=== PATIENT | female | born 1940 | race Caucasian/White ===

== ENCOUNTER → 2017-04-06 | Outpatient (CLI) | payer MEDICARE ==
[~2017-04-06] MED LIST: ALEV220T14 PO; ASPI81CH6 CHEW; CPMMACHINE; FURO20TA PO; HYDR-3288 PO; NAPR220C22; PANT40TA3 PO; SIMV20TA PO; WALKER WHEELS/F1 MIS
== END ==
LOC: CPRE 11:38
PROVIDERS: ATTEND Orthopaedic Surgery Sports Medicine
DX: M17.12 Unilateral primary osteoarthritis, left knee (principal)

== ENCOUNTER 2017-04-20 11:12 | Inpatient (IN) | payer MEDICARE ==
[~2017-04-20] VITALS: Ht 158.8 cm; Wt 91.9 kg
[~2017-04-20 11:12] MED LIST changes: -ASPI81CH6 CHEW; -CPMMACHINE; -HYDR-3288 PO; -NAPR220C22; -WALKER WHEELS/F1 MIS
[2017-04-20] MEDS ORDERED: ePHEDrine/NS 25 MG/5 ML SYRINGE IV ONE (12:00)
[2017-04-20] MEDS ORDERED: ONDANSETRON HCL 4 MG/2 ML VIAL IV ONE (12:00)
[2017-04-20] MEDS ORDERED: NEOSTIGMINE 5 MG/5 ML SYRINGE IV PUSH ONE (12:00)
[2017-04-20] MEDS ORDERED: METOPROLOL TARTRATE 5 MG/5 ML VIAL IV ONE (12:00)
[2017-04-20] MEDS ORDERED: ROCURONIUM INJ 50 MG/5 ML SYRINGE IV PUSH ONE (12:00)
[2017-04-20] MEDS ORDERED: ESMOLOL HCL 100 MG/10 ML VIAL IV ONE (12:00)
[2017-04-20] MEDS ORDERED: PHENYLEPH/NS 1000 MCG/10 ML SYR IV ONE (12:00)
[2017-04-20] MEDS ORDERED: PROPOFOL 200 MG/20 ML AMP IV ONE (12:00)
[2017-04-20] MEDS ORDERED: GLYCOPYRROLATE 1 MG/5 ML SYRINGE IV PUSH ONE (12:00)
[2017-04-20] MEDS ORDERED: LIDOCAINE HCL 1% PF 5 ML SYRINGE OTHER ONE (12:00)
[2017-04-20] MEDS ORDERED: DEXAMETHASONE SOD PHOS 20 MG/5 ML VIAL ONE (12:38)
[2017-04-20] MEDS ORDERED: ceFAZolin 2 GM PREMIX 50 ML ONE (12:38)
[2017-04-20] MEDS ORDERED: HYDR-3288 PO (12:42)
[2017-04-20] MEDS ORDERED: ASPI81CH6 CHEW (12:43)
[2017-04-20] MEDS ORDERED: LACTATED RINGER'S 1000 ML IV PRN (13:00)
[2017-04-20] MEDS ORDERED: SODIUM CHLORID 0.9% 500 ML IV PRN (13:00)
[2017-04-20] MEDS ORDERED: ceFAZolin 2 GM PREMIX 50 ML IV SCH (13:00)
[2017-04-20] MEDS ORDERED: CHLORHEXIDINE GLUCONATE 4% SOLN 120 ML BTL TOPICAL SCH (13:00)
[2017-04-20] MEDS ORDERED: VANCOMYCIN 1000 MG/NS 250 ML (for <70 kg) IV SCH ×2 (13:00)
[2017-04-20] MEDS ORDERED: POVIDONE IODINE 7.5% SCRUB 118 ML BOTTLE TOPICAL SCH (13:00)
[2017-04-20] MEDS ORDERED: CHLORHEXIDINE GLUCONATE 2 % 1 PACK (2 CLOTHS) TOPICAL PRN (13:00)
[2017-04-20] MEDS ORDERED: POVIDONE IODINE 5% (ANTISEPSIS KIT) 4 APPLICATIONS EACH NARE PRN (13:00)
[2017-04-20] MEDS ORDERED: METOPROLOL TARTRATE 25 MG TAB PO PRN (13:00)
[2017-04-20 13:01] VITALS: PULSE 74
[2017-04-20] MEDS ORDERED: BISACODYL 10 MG SUPP RECTAL PRN (13:15)
[2017-04-20] MEDS ORDERED: MORPHINE SULFATE 4 MG/ML INJ IV PUSH PRN (13:15)
[2017-04-20] MEDS ORDERED: ONDANSETRON HCL 4 MG/2 ML VIAL IVP PRN (13:15)
[2017-04-20] MEDS ORDERED: DEXAMETHASONE SOD PHOS 20 MG/5 ML VIAL IV SCH (13:15)
[2017-04-20] MEDS ORDERED: diphenhydrAMINE HCL 50 MG/ML VIAL IV PUSH PRN (13:15)
[2017-04-20] MEDS ORDERED: MIDAZOLAM HCL 5 MG/5 ML VIAL ONE (13:25)
[2017-04-20] MEDS ORDERED: SODIUM CHLORIDE 0.9% 20 ML VIAL ONE (13:26)
[2017-04-20] MEDS ORDERED: BUPIVACAINE LIPOSOME PF 1.3% 20 ML VIAL ONE (13:26)
[2017-04-20] MEDS ORDERED: ACETAMINOPHEN 1000 MG/100 ML 100 ML IV ONE (13:34)
[2017-04-20] MEDS ORDERED: ROPIVACAINE PERI-ARTICULAR INJECTION. P-ARTICULR SCH ×5 (14:00)
[2017-04-20] MEDS ORDERED: TRANEXAMIC PERI-ARTICULAR 3,000 MG/NS 100 ML P-ARTICULR SCH ×2 (14:00)
[2017-04-20] MEDS ORDERED: TRANEXAMIC ACID INJ 1,080 MG in SODIUM CHLORIDE 0.9% INJ 100 ML IV SCH (14:00)
[2017-04-20] MEDS ORDERED: Post-op Orders (for Pharmacy) XX ONE (14:00)
[2017-04-20] MEDS ORDERED: GENTAMICIN SULFATE 80 MG/2 ML VIAL ONE (14:51)
[2017-04-20] MEDS ORDERED: DO NOT ADM ANY ANTICOAGULANT DRUGS PRN (15:59)
[2017-04-20] MEDS: SODIUM CHLOR 0.9% 1000 ML INJ 1,000 ML IV SCH ×2 (16:16→23:15)
[2017-04-20] MEDS ORDERED: MORPHINE SULFATE 4 MG/ML INJ ONE (16:17)
--- NOTE | 2017-04-20 16:23 | RADRPT ---
EXAM DATE/TIME: 04/20/2017 16:05 [facility] COMPARISON: No previous studies available for comparison. INDICATIONS : Post op left total knee. MEDICAL HISTORY : None. SURGICAL HISTORY : Total left knee ENCOUNTER: Initial ACUITY: 1 day PAIN SCORE: 0/10 LOCATION: Left knee FINDINGS: Left total knee arthroplasty is noted. The tibial and femoral components appear well seated. There is subcutaneous air as well as air within the suprapatellar region. CONCLUSION: Satisfactory, expected postoperative appearance left knee arthroplasty. Aditya Ferraro MD on April 20, 2017 at 16:22 Board Certified Radiologist. This report was verified electronically.
--- NOTE | 2017-04-20 16:26 | PD.ORT.PN ---
Objective Vitals Vital Signs Date Time Temp Pulse Resp B/P (MAP) Pulse Ox O2 Delivery O2 Flow Rate FiO2 04/20/17 16:15 75 22 143/67 (92) 97 Nasal Cannula 2 04/20/17 16:00 79 20 144/67 (92) 95 Nasal Cannula 2 04/20/17 15:59 97.3 82 21 154/71 (98) 96 Nasal Cannula 2 04/20/17 13:01 74 04/20/17 12:06 97.8 73 16 142/77 (98) 99 Assessment & Plan Ortho Post Op Day #: 0 Problem List: Assessment and Plan s/p L TKA POD#0 wbat ok to maintain dressing unless saturated lovenox, d/c on asa81 d/c planning home vs snf rx in chart f/up dr. johnston 2 weeks Vinay Samuels Apr 20, 2017 16:26
--- NOTE | 2017-04-20 16:28 | HHI.DCPOC ---
Discharge Care Plan Diagnosis: (1) Primary localized osteoarthrosis, lower leg Your Health Problems Are: Difficulty with ADL Goals to Promote Your Health * To prevent worsening of your condition and complications * To maintain your health at the optimal level Directions to Meet Your Goals Take your medications as prescribed Follow your dietary instruction Follow activity as directed Keep your appointments as scheduled Take your immunizations and boosters as scheduled If your symptoms worsen call your PCP, if no PCP go to Urgent Care Center or Emergency Room Smoking is Dangerous to Your Health. Avoid second hand smoke Call the 24-hour hour crisis hotline for domestic abuse at Vinay Samuels Apr 20, 2017 16:28
--- NOTE | 2017-04-20 16:28 | HHI.FF ---
Face to Face Verification Diagnosis: (1) Primary localized osteoarthrosis, lower leg Physical Therapy Gait training, Safety evaluation, Transfer training, bed to chair Knee: Total knee, Protocol: Left, Full weight bearing Left LE Weight Bearing: WB as tolerated Nursing RN: 3 days/week x 2 weeks Nursing: Dressing changes Dressing Changes: Daily dressing change I have seen patient Andrey Herzog on 04/20/17. My clinical findings support the need for the requested home health care services because: Limited ability to care for self High risk of falls I certify that my clinical findings support that this patient is homebound because: Post-op weakness Unsteady gait/balance Vinay Samuels Apr 20, 2017 16:28
[2017-04-20] MEDS ORDERED: CPMMACHINE (16:29)
[2017-04-20] MEDS ORDERED: WALKER WHEELS/F1 MIS (16:29)
--- NOTE | 2017-04-20 20:10 | MP ---
cc: Vinay Gusman MD DATE OF OPERATION: PREOPERATIVE DIAGNOSIS: Left knee osteoarthritis. POSTOPERATIVE DIAGNOSIS: Left knee osteoarthritis. PROCEDURE: Left total knee arthroplasty. SURGEON: Vinay Gusman MD BASEBALL WINDER: GLORIA Bowser ANESTHESIA: General with a femoral nerve adductor canal block. ESTIMATED BLOOD LOSS: 200 mL. TOURNIQUET TIME: 23 minutes at 250 mmHg. COMPLICATIONS: None. IMPLANTS USED: DePuy Attune size 6 posterior stabilized femoral component, size 5 rotating platform tibial baseplate, size 5 mm polyethylene tibial insert, size 35 patella. JUSTIFICATIONS: Patient is a 77-year-old female with history of severe osteoarthritis involving the left knee. She has severe disabling pain with standing, walking, ambulation, weightbearing activities and even severe pain at rest. She has failed greater than 3 months of nonoperative conservative treatment to include medication therapy, injections, ambulatory assistive aids, home exercise program, activity modification and weight loss attempts. X-rays of the left knee reveal severe end-stage osteoarthritis with [id number] joint space narrowing, subchondral sclerosis, subchondral/osteophyte formation with subluxation and deformity. The patient was counseled on risks, benefits and alternatives to total knee arthroplasty. The risks were discussed, which include but are not limited to anesthesia, bleeding, infection, damage to nerves and blood vessels, pain, stiffness, failure of components, blood clots, pulmonary embolism and even . Patient's pain is severe. She favors the benefits over the risks. She did wish to proceed with surgery. PROCEDURE IN DETAIL: Written consent was obtained. Patient was identified by name, taken to operating room, placed supine on the operating table. General anesthesia was administered as well as 2 g of IV Ancef and 1 g of IV vancomycin. A well-padded tourniquet was placed on the left thigh. The left lower extremity prepped and draped using isopropyl alcohol, Hibiclens solution and ChloraPrep solution. After a timeout was performed, an Esmarch bandage was used to exsanguinate the left lower extremity. The tourniquet was inflated to 250 mmHg. A longitudinal incision was made over the anterior aspect of the left knee, a medial parapatellar arthrotomy was performed and the patella was everted. Patella resection guide was used to resect 9 mm of patella. A size 35 mm guide was placed. Three drill holes were placed and the 35 mm patella trial fit well. Attention was turned to the femur, where an intramedullary guidewire was placed and the distal femoral guide was set to remove 10 mm of distal femur, 5 degrees off the anatomic valgus axis alignment. An oscillating saw was used to perform the distal femoral cut. Attention was turned to the tibia, where an extramedullary tibial guide was set to remove 5 mm of the lowest portion of the medial tibial plateau. Tibial guide was pinned in place and tibia cut was performed. A 5 mm spacer block showed full extension. Attention was turned back to the femur. The AP sizing block measured a size 6. The anterior reference 3 degree external rotation guide was used to pin a size [address] The anterior and posterior chamfer cuts were performed. A size 6 PCL box guide was pinned in place and the PCL was box cut with an oscillating saw. The medial and lateral meniscus remnants were removed, as well as bone and soft tissues debris from the posterior portion of the knee. A size 5 tibial baseplate was pinned in place and tibia was drilled and punched. Trial components were evaluated and final components cemented into place. With the current components, the leg could achieve full extension to zero degrees and flexion to 140. No evidence of tibial liftoff. Varus-valgus balance appeared appropriate and symmetric, and the patella was noted to track centrally. With the tourniquet deflated, Bovie cautery was used for hemostasis. The knee was again thoroughly irrigated with sterile saline pulse lavage antibiotic impregnated solution. The arthrotomy incision was closed with #1 Vicryl suture, subcutaneous layer with 2-0 Vicryl suture, and the skin was closed with Dermabond. Sterile dressings were applied. The patient tolerated the procedure well with no intraoperative complications noted. Alfonso Samuels, physician assistant grocery store manager, certified was present for entire procedure to include patient positioning and the procedure itself. The medical necessity of a physician assistant grocery store manager was indicated in this case due to complexity of the procedure. He assisted with appropriate manipulation of the leg and also retraction of muscle, tendon, bone and neurovascular structures. He assisted with preparation of bone and also implantation of the prosthetic replacement. MD KIRAN Woodall/RANDY , 03:38 PM , 08:08 PM
[2017-04-20 20:20] VITALS: BP 116/58; PULSE 76; RESP 18; TEMP 96.4; O2SAT 96
[2017-04-20] MEDS ORDERED: ZOLPIDEM TARTRATE 5 MG TAB PO PRN (21:00)
[2017-04-21] VITALS (7 sets, daily range): BP systolic 105–129; BP diastolic 50–64; PULSE 74–87; RESP 15–18; TEMP 96.8–98.9; O2SAT 93–95
[2017-04-21] MEDS: ENOXAPARIN SODIUM 30 MG/0.3 ML SYRINGE SQ SCH (04:00)
[2017-04-21] MEDS: ACETAMINOPHEN/HYDROcodone 325 MG/7.5 MG TAB PO PRN ×4 (06:16→20:52)
[2017-04-21 07:01] LABS: HEMATOCRIT 33.5 % (35.0-46.0); HEMOGLOBIN 11.3 GM/DL (11.6-15.3); MEAN CELL VOLUME 82.7 FL (80.0-100.0); MEAN CORPUSCULAR HEMOGLOBIN 27.9 PG (27.0-34.0); MEAN CORPUSCULAR HGB CONC 33.7 % (32.0-36.0); MEAN PLATELET VOLUME 8.1 FL (7.0-11.0); PLATELET COUNT 307 TH/MM3 (150-450); RED BLOOD COUNT 4.05 MIL/MM3 (4.00-5.30); WHITE BLOOD COUNT 11.3 TH/MM3 (4.0-11.0)
[2017-04-21 07:27] LABS: BICARBONATE 23.4 MEQ/L (21.0-32.0); CALCIUM 8.4 MG/DL (8.5-10.1); CREATININE 0.97 MG/DL (0.50-1.00)
--- NOTE | 2017-04-21 08:41 | PD.CONS ---
HPI Service [facility] Hospitalists Consult Requested By Dr. Gusman Reason for Consult Post-operative medical management Primary Care Physician Prakash Olivas MD, PhD Diagnoses: History of Present Illness This is a 77 year old female with a past medical history which includes cervical radiculopathy, esophageal reflux, hyperlipidemia, thrombocytopenia, subclinical hypothyroidism and osteoarthritis localized to the knee. Patient is S/P Left total knee arthroplasty 04/20/[address] Gusman. We have been consulted for assistance with post operative medical management. Patient resting in bed A&O in no acute distress. Patient reports feeling well and in no acute distress. Denies chest pain, SOB, fevers, chills, N/V/D/C. Review of Systems Constitutional: DENIES: Fatigue, Fever, Chills Respiratory: DENIES: Cough, Sputum production, Shortness of breath Cardiovascular: DENIES: Chest pain, Palpitations, Dyspnea on Exertion Musculoskeletal: COMPLAINS OF: Stiffness, Joint Swelling Neurologic: DENIES: Headache, Speech Problems Psychiatric: DENIES: Anxiety, Confusion, Depression Past Family Social History Past Medical History cervical radiculopathy, esophageal reflux, hyperlipidemia, thrombocytopenia, subclinical hypothyroidism, osteoarthritis localized to the knee Past Surgical History Arthroscopy right knee, back surgery, cataract surgery, EGD with biopsy, hand surgery for carpal tunnel release Reported Medications Aspirin Low Dose (Aspirin) 81 Mg Chew 81 Mg CHEW BID 30 Days [place] (Hydrocodone-Acetaminophen) 7.5-325 mg Tab 1-2 Tab PO Q6H PRN Aleve Arthritis (Naproxen Sodium) 220 Mg Tab 220 Mg PO BID Simvastatin 20 Mg Tab 20 Mg PO DAILY Pantoprazole (Pantoprazole Sodium) 40 Mg Tab 40 Mg PO DAILY Furosemide 20 Mg Tab 20 Mg PO DAILY Allergies: Coded Allergies: prednisone (Verified Allergy, Unknown, 04/06/17) Family History Reviewed and noncontributory Social History Denies ETOH use, denies tobacco use and denies illicit drug use Physical Exam Vital Signs Vital Signs Date Time Temp Pulse Resp B/P (MAP) Pulse Ox O2 Delivery O2 Flow Rate FiO2 04/21/17 04:20 97.8 87 17 117/64 (81) 95 04/21/17 00:10 96.8 74 17 108/59 (75) 94 04/20/17 20:20 96.4 76 18 116/58 (77) 96 04/20/17 17:40 97.3 71 16 133/82 (99) 95 Nasal Cannula 2 04/20/17 17:15 67 15 129/55 (79) 95 Nasal Cannula 2 04/20/17 17:00 66 13 136/62 (86) 96 Nasal Cannula 2 04/20/17 16:45 68 18 138/62 (87) 95 Nasal Cannula 2 04/20/17 16:30 72 15 139/60 (86) 94 Nasal Cannula 2 04/20/17 16:15 75 22 143/67 (92) 97 Nasal Cannula 2 04/20/17 16:00 79 20 144/67 (92) 95 Nasal Cannula 2 04/20/17 15:59 97.3 82 21 154/71 (98) 96 Nasal Cannula 2 04/20/17 13:01 74 04/20/17 12:06 97.8 73 16 142/77 (98) 99 Physical Exam GENERAL: This is a well-nourished, well-developed patient, in no apparent distress. SKIN: Post-op dressing dry and intact HEAD: Atraumatic. Normocephalic. No temporal or scalp tenderness. EYES: Extraocular motions intact. No scleral icterus. No injection or drainage. CARDIOVASCULAR: Regular rate and rhythm RESPIRATORY: Clear to auscultation. Breath sounds equal bilaterally. GASTROINTESTINAL: Abdomen soft, non-tender, nondistended. MUSCULOSKELETAL: Extremities without clubbing, cyanosis, or edema. No joint tenderness, effusion, or edema noted. No calf tenderness. Negative Homans sign bilaterally. NEUROLOGICAL: Awake and alert. No focal deficits. Motor and sensory grossly within normal limits. Five out of 5 muscle strength in all muscle groups, with the exception of post-operative LLE. Normal speech. Laboratory Laboratory Tests Test 04/21/17 04:42 White Blood Count 11.3 Red Blood Count 4.05 Hemoglobin 11.3 Hematocrit 33.5 Mean Corpuscular Volume 82.7 Mean Corpuscular Hemoglobin 27.9 Mean Corpuscular Hemoglobin Concent 33.7 Red Cell Distribution Width 14.0 Platelet Count 307 Mean Platelet Volume 8.1 Blood Urea Nitrogen 18 Creatinine 0.97 Random Glucose 76 Calcium Level 8.4 Sodium Level 139 Potassium Level 3.6 Chloride Level 106 Carbon Dioxide Level 23.4 Anion Gap 10 Estimat Glomerular Filtration Rate 56 Result Diagram: 3/3/18 0442 3/3/18 0442 Imaging Last Impressions Knee X-Ray 04/20/17 1240 Signed Impressions: Service Date/Time: Thursday, April 20, 2017 16:05 - CONCLUSION: Satisfactory, expected postoperative appearance left knee arthroplasty. Aditya Ferraro MD Assessment and Plan Problem List: (1) Osteoarthritis ICD Codes: M19.90 - Unspecified osteoarthritis, unspecified site Plan: S/P Left total knee arthroplasty 04/20/[address] Gusman. We have been consulted for assistance with post operative medical management. We have been consulted for assistance with post-op medical management Patient reports feeling well pain controlled with PO pain medication (2) Hyperlipidemia ICD Codes: E78.5 - Hyperlipidemia, unspecified Plan: continue home simvastatin (3) GERD (gastroesophageal reflux disease) ICD Codes: K21.9 - Gastro-esophageal reflux disease without esophagitis Plan: continue home pantoprazole Assessment and Plan Patient examined. Assessment and plan formulated with Ana Lilia Eagle PA-C. I agree with the above. Ana Lilia Eagle Apr 21, 2017 08:40 Austin Estrada DO Apr 23, 2017 12:37
[2017-04-21] MEDS: FUROSEMIDE 20 MG TAB PO SCH (08:44)
[2017-04-21] MEDS: PRAVASTATIN SOD 40 MG TAB PO SCH (08:44)
[2017-04-21] MEDS: PANTOPRAZOLE SOD 40 MG DELAYED RELEASE TAB PO SCH (08:44)
[2017-04-21] MEDS: SODIUM CHLOR 0.9% 1000 ML INJ 1,000 ML IV SCH ×2 (09:15→19:15)
[2017-04-21] MEDS ORDERED: PNEUMOCOCCAL POLYVALENT INJ 25 MCG/0.5 ML SYR IM ONE (10:00)
--- NOTE | 2017-04-21 18:07 | PD.ORT.PN ---
Subjective Subjective Remarks no CP/SOB. no issues. pain controlled. Objective Vitals Vital Signs Date Time Temp Pulse Resp B/P (MAP) Pulse Ox O2 Delivery O2 Flow Rate FiO2 04/21/17 16:00 98.4 80 18 129/56 (80) 94 04/21/17 12:00 96.8 79 18 105/50 (68) 93 04/21/17 09:59 94 04/21/17 08:00 98.9 79 18 119/56 (77) 94 04/21/17 04:20 97.8 87 17 117/64 (81) 95 04/21/17 00:10 96.8 74 17 108/59 (75) 94 04/20/17 20:20 96.4 76 18 116/58 (77) 96 I/O 04/20/17 04/20/17 04/20/17 04/21/17 04/21/17 04/21/17 07:00 15:00 23:00 07:00 15:00 23:00 Intake Total 133 ml 480 ml 600 ml Output Total 250 ml 750 ml Balance 133 ml 230 ml -150 ml Intake Oral 480 ml 600 ml IV Total 133 ml Output Urine Total 250 ml 750 ml # Bowel Movements 0 0 Result Diagram: 04/21/17 0442 04/21/17 0442 Objective Remarks aaox3 LLE: nvi, neg homans, SILT distally, dressing CDI Assessment & Plan Assessment and Plan s/p L TKA POD#1 doing well. no issues. pain controlled wbat ok to maintain dressing unless saturated lovenox, d/c on asa81 d/c planning home HHC tomorrow rx in chart f/up dr. johnston 2 weeks Michael Josue Jr., MD Apr 21, 2017 18:07
[2017-04-21] MEDS: DOCUSATE SODIUM 100 MG CAP PO SCH (20:51)
[2017-04-21] MEDS: MULTIVITAMINS/MINERALS THERAPEUTIC TAB PO SCH (20:51)
[2017-04-22] VITALS: BP 117/57; PULSE 87; RESP 15; TEMP 98.7; O2SAT 94
[2017-04-22] MEDS: ACETAMINOPHEN/HYDROcodone 325 MG/7.5 MG TAB PO PRN ×4 (01:12→16:03)
[2017-04-22 04:00] VITALS: BP 125/57; PULSE 83; RESP 16; TEMP 98; O2SAT 97
[2017-04-22] MEDS: ENOXAPARIN SODIUM 30 MG/0.3 ML SYRINGE SQ SCH (04:44)
[2017-04-22] MEDS: SODIUM CHLOR 0.9% 1000 ML INJ 1,000 ML IV SCH (05:15)
[2017-04-22 08:00] VITALS: BP 116/60; PULSE 81; RESP 18; TEMP 97.4; O2SAT 92
[2017-04-22] MEDS: FUROSEMIDE 20 MG TAB PO SCH (09:00)
[2017-04-22] MEDS: MULTIVITAMINS/MINERALS THERAPEUTIC TAB PO SCH (09:05)
[2017-04-22] MEDS: DOCUSATE SODIUM 100 MG CAP PO SCH (09:05)
[2017-04-22] MEDS: PANTOPRAZOLE SOD 40 MG DELAYED RELEASE TAB PO SCH (09:05)
[2017-04-22] MEDS: PRAVASTATIN SOD 40 MG TAB PO SCH (09:05)
[2017-04-22 09:18] LABS: HEMATOCRIT 34.6 % (35.0-46.0); HEMOGLOBIN 11.7 GM/DL (11.6-15.3); MEAN CELL VOLUME 82.7 FL (80.0-100.0); MEAN CORPUSCULAR HEMOGLOBIN 28.1 PG (27.0-34.0); MEAN PLATELET VOLUME 7.3 FL (7.0-11.0); PLATELET COUNT 309 TH/MM3 (150-450); RED BLOOD COUNT 4.18 MIL/MM3 (4.00-5.30); RED CELL DISTRIBUTION WIDTH 14.6 % (11.6-17.2); WHITE BLOOD COUNT 12.6 TH/MM3 (4.0-11.0)
[2017-04-22 10:05] LABS: BICARBONATE 23.1 MEQ/L (21.0-32.0); CALCIUM 8.4 MG/DL (8.5-10.1); CREATININE 0.91 MG/DL (0.50-1.00)
--- NOTE | 2017-04-22 11:28 | RADRPT ---
EXAM DATE/TIME: 04/22/2017 11:07 [facility] COMPARISON: No previous studies available for comparison. INDICATIONS : Lightheaded and vomitting. MEDICAL HISTORY : None. SURGICAL HISTORY : None. ENCOUNTER: Initial ACUITY: 1 day PAIN SCORE: 0/10 LOCATION: Bilateral chest FINDINGS: Minimal linear parenchymal changes left base. Right lung is clear. The heart and pulmonary vascularity are normal. The portion of the bony skeleton visualized is unremarkable. CONCLUSION: Minimal linear parenchymal changes left base, probably atelectasis Anthony Kim MD FACR on April 22, 2017 at 11:26 Board Certified Radiologist. This report was verified electronically.
[2017-04-22 12:00] VITALS: BP 115/57; PULSE 78; RESP 18; TEMP 96.4; O2SAT 98
--- NOTE | 2017-04-22 13:09 | PD.ORT.PN ---
Subjective Subjective Remarks no CP/SOB. no issues. pain controlled. Objective Vitals Vital Signs Date Time Temp Pulse Resp B/P (MAP) Pulse Ox O2 Delivery O2 Flow Rate FiO2 04/22/17 12:00 96.4 78 18 115/57 (76) 98 04/22/17 08:00 97.4 81 18 116/60 (78) 92 04/22/17 04:00 98.0 83 16 125/57 (79) 97 04/22/17 00:00 98.7 87 15 117/57 (77) 94 04/21/17 20:00 98.6 81 15 109/54 (72) 95 04/21/17 16:00 98.4 80 18 129/56 (80) 94 I/O 04/21/17 04/21/17 04/21/17 04/22/17 04/22/17 04/22/17 07:00 15:00 23:00 07:00 15:00 23:00 Intake Total 480 ml 600 ml 600 ml 0 ml Output Total 250 ml 750 ml Balance 230 ml -150 ml 600 ml 0 ml Intake Oral 480 ml 600 ml 600 ml 0 ml Output Urine Total 250 ml 750 ml # Voids 0 0 # Bowel Movements 0 0 Result Diagram: 04/22/17 0904 04/22/17 0904 Imaging Last 24 hours Impressions Chest X-Ray 04/22/17 0000 Signed Impressions: Service Date/Time: Saturday, April 22, 2017 11:07 - CONCLUSION: Minimal linear parenchymal changes left base, probably atelectasis Anthony Kim MD FACR Objective Remarks aaox3 LLE: nvi, neg homans, SILT distally, dressing CDI Assessment & Plan Assessment and Plan s/p L TKA POD#2 doing well. no issues. pain controlled wbat ok to maintain dressing unless saturated lovenox, d/c on asa81 d/c planning home HHC today rx in chart f/up dr. johnston 2 weeks Michael Josue Jr., MD Apr 22, 2017 13:09
--- NOTE | 2017-04-22 14:35 | HHI.FF ---
Face to Face Verification Diagnosis: (1) Knee arthropathy (2) Primary localized osteoarthrosis, lower leg Physical Therapy Order: Evaluate and Treat, Improve ambulation, Strength and gait training Home Health Nursing Order: Medical education Signs/symptoms of disease process Medication education-adverse effect Wound care and dressing changes Nursing assessment with vital signs Instructions: obtain CBC 04/23/17 send results to pt's PCP, Dr. Prakash Olivas I have seen patient Andrey Herzog on 04/22/17. My clinical findings support the need for the requested home health care services because: Ltd mobility - disease progression Deconditioned w/ increased weakness Med compliance is questionable Limited ability to care for self Need for psychosocial assistance I certify that my clinical findings support that this patient is homebound because: Impaired cognitive ability/safety Unsteady gait/balance Unsafe to leave home unassisted Unable to use public transportation Austin Estrada DO Apr 22, 2017 14:35
[2017-04-22 15:07] LABS: BILIRUBIN, URINE NEG (NEG); BLOOD, URINE NEG (NEG); GLUCOSE,URINE NEG (NEG); KETONE, URINE NEG (NEG); MUCUS URINE FEW /lpf (OCC); NITRITE,URINE NEG (NEG); PH, URINE 5.5 (5.0-8.5); SQUAMOUS EPITHELIAL CELL URINE 2 /hpf (0-5); TRANSITIONAL EPI CELLS, URINE 2 /hpf; URINE COLOR YELLOW (YELLW/STRAW); URINE LEUKOCYTE ESTERASE SMALL (NEG)
--- NOTE | 2017-04-22 15:14 | HHI.PR ---
Subjective Remarks Patient seen with daughter at bedside reports doing well offers no complaints Patient S/P Left total knee arthroplasty 04/20/17 Objective Vitals Vital Signs Date Time Temp Pulse Resp B/P (MAP) Pulse Ox O2 Delivery O2 Flow Rate FiO2 04/22/17 12:00 96.4 78 18 115/57 (76) 98 04/22/17 08:00 97.4 81 18 116/60 (78) 92 04/22/17 04:00 98.0 83 16 125/57 (79) 97 04/22/17 00:00 98.7 87 15 117/57 (77) 94 04/21/17 20:00 98.6 81 15 109/54 (72) 95 04/21/17 16:00 98.4 80 18 129/56 (80) 94 04/22/17 04/22/17 04/23/17 15:00 23:00 07:00 Intake Total 480 ml Balance 480 ml Intake Oral 480 ml # Voids 2 # Bowel Movements 0 Result Diagram: 04/22/17 0904 04/22/17 0904 Other Results Laboratory Tests Test 04/21/17 04:42 04/22/17 09:04 04/22/17 14:45 White Blood Count 11.3 TH/MM3 12.6 TH/MM3 Red Blood Count 4.05 MIL/MM3 4.18 MIL/MM3 Hemoglobin 11.3 GM/DL 11.7 GM/DL Hematocrit 33.5 % 34.6 % Mean Corpuscular Volume 82.7 FL 82.7 FL Mean Corpuscular Hemoglobin 27.9 PG 28.1 PG Mean Corpuscular Hemoglobin Concent 33.7 % 34.0 % Red Cell Distribution Width 14.0 % 14.6 % Platelet Count 307 TH/MM3 309 TH/MM3 Mean Platelet Volume 8.1 FL 7.3 FL Blood Urea Nitrogen 18 MG/DL 13 MG/DL Creatinine 0.97 MG/DL 0.91 MG/DL Random Glucose 76 MG/DL 102 MG/DL Calcium Level 8.4 MG/DL 8.4 MG/DL Sodium Level 139 MEQ/L 137 MEQ/L Potassium Level 3.6 MEQ/L 3.6 MEQ/L Chloride Level 106 MEQ/L 105 MEQ/L Carbon Dioxide Level 23.4 MEQ/L 23.1 MEQ/L Anion Gap 10 MEQ/L 9 MEQ/L Estimat Glomerular Filtration Rate 56 ML/MIN 60 ML/MIN Urine Color YELLOW Urine Turbidity CLEAR Urine pH 5.5 Urine Specific [place] 1.017 Urine Protein TRACE mg/dL Urine Glucose (UA) NEG mg/dL Urine Ketones NEG mg/dL Urine Occult Blood NEG Urine Nitrite NEG Urine Bilirubin NEG Urine Urobilinogen LESS THAN 2.0 MG/DL Urine Leukocyte Esterase SMALL Urine RBC 1 /hpf Urine WBC 8 /hpf Urine Squamous Epithelial Cells 2 /hpf Urine Transitional Epithelial Cells 2 /hpf Urine Mucus FEW /lpf Microscopic Urinalysis Comment CULT NOT INDICATED Imaging Last Impressions Knee X-Ray 04/20/17 1240 Signed Impressions: Service Date/Time: Thursday, April 20, 2017 16:05 - CONCLUSION: Satisfactory, expected postoperative appearance left knee arthroplasty. Aditya Ferraro MD Objective Remarks GENERAL: This is a well-nourished, well-developed patient, in no apparent distress. CARDIOVASCULAR: Regular rate and rhythm RESPIRATORY: Clear to auscultation. Breath sounds equal bilaterally. GASTROINTESTINAL: Abdomen soft, non-tender, nondistended. Normal active bowel sounds MUSCULOSKELETAL: Extremities without clubbing, cyanosis, or edema. NEURO: Alert & Oriented. Moves all ext x4 A/P Problem List: (1) Osteoarthritis ICD Codes: M19.90 - Unspecified osteoarthritis, unspecified site Plan: S/P Left total knee arthroplasty 04/20/[address] Gusman. We have been consulted for assistance with post operative medical management. We have been consulted for assistance with post-op medical management Patient reports feeling well pain controlled with PO pain medication WBC 11.3 -> 12.6 UA pending CXR reviewed conclusion Minimal linear parenchymal changes left base, probably atelectasis IS encouraged Patient afebrile If UA negative patient cleared for DC from medical standpoint (2) Hyperlipidemia ICD Codes: E78.5 - Hyperlipidemia, unspecified Plan: continue home simvastatin (3) GERD (gastroesophageal reflux disease) ICD Codes: K21.9 - Gastro-esophageal reflux disease without esophagitis Plan: continue home pantoprazole Assessment and Plan Patient examined. Assessment and plan formulated with Ana Lilia Eagle PA-C. I agree with the above. Ana Lilia Eagle Apr 22, 2017 15:14 Austin Estrada DO Apr 23, 2017 12:37
--- NOTE | 2017-04-25 07:59 | MD ---
cc: Vinay Gusman MD DATE OF DISCHARGE: 04/22/2017 ADMITTING DIAGNOSIS: Severe degenerative osteoarthritis left knee. DISCHARGE DIAGNOSIS: Severe degenerative osteoarthritis left knee. HISTORY OF PRESENT ILLNESS: Ms. Herzog is a 77-year-old female who presented to [facility] for evaluation by Dr. Vinay Gusman regarding progressive left knee pain. The patient states that pain currently is inhibiting her activities of daily living. It is a severe constant aching sensation with weight bearing. She has no alleviating factors although in the past she has tried medications, bracing, physical therapy, home exercises and even corticosteroid injections without relief of symptoms. She does have x-ray evidence of severe degenerative osteoarthritis of the left knee. While in the office the patient was counseled of her diagnosis and treatment options, risks, benefits, indications were already discussed. The patient did elect to proceed with surgical intervention to include a left total knee arthroplasty. DATE OF SURGERY: 04/20/2017, left total knee arthroplasty. POSTOP: After surgery, the patient admitted to [facility] where she received appropriate medical management, pain control, DVT prophylaxis as well as physical therapy. DISCHARGE: Once being discharged from the hospital the patient has cleared to go home where she will receive home health care and home physical therapy. She is in stable condition. She may weight bear as tolerated. The patient has been instructed in appropriate wound care management. She has been provided prescriptions for pain control as well as DVT prophylaxis medication. She has also been provided a followup appointment approximately 2 weeks from the date of surgery. She has asked appropriate questions which have been answered. The patient has been discharged. Dictated by GLORIA Rousseau Vinay Gusman MD JWM/rt , 08:33 AM , 08:30 PM
== END 2017-04-22 16:19 | disposition home health service (06) | DRG 470 ==
LOC: HSDC 11:12 → HSDI 12:41 → N06A 17:56
PROVIDERS: ADMIT Orthopaedic Surgery Sports Medicine; ATTEND Orthopaedic Surgery Sports Medicine
PROC: 3E0T3BZ Introduction of Anesthetic Agent into Peripheral Nerves and Plexi, Percutaneous Approach (ICD-10-PCS; 2017-04-20)
PROC: 0SRD0J9 Replacement of Left Knee Joint with Synthetic Substitute, Cemented, Open Approach (ICD-10-PCS; principal; 2017-04-20 13:45)
DX: M17.12 Unilateral primary osteoarthritis, left knee (principal); E03.9 Hypothyroidism, unspecified; E78.5 Hyperlipidemia, unspecified; K21.9 Gastro-esophageal reflux disease without esophagitis; Z23 Encounter for immunization
CPT/HCPCS: 71045; 73560; 80048; 81001; 85027; 86850; 86900; 86901; 90732; 94150; C1776; C9290; J0131; J0690; J0735; J1100; J1580; J1650; J1885; J2250; J2270; J2370; J2405; J2710; J2795; J3010; J3370; J7030; J7050; J7120; L1830